=== PATIENT | male | born 1955 | race Caucasian/White ===

== ENCOUNTER → 2022-11-05 10:29 | Outpatient (BNVA) | payer MEDICARE, MEDICAID, SELFPAY | PROVIDERS: PCP Family Medicine; Referring Provider Nurse Practitioner Family; Visit Provider Anesthesiology Pain Medicine | DX: M54.12 Radiculopathy, cervical region (principal); M54.50 Low back pain, unspecified | CPT/HCPCS: 99204 ==

== ENCOUNTER 2022-12-05 12:46 | Outpatient (CLI) | payer MEDICARE, MEDICAID, SELFPAY ==
--- NOTE | 2022-12-05 12:58 | XR_ITS ---
WS: [id number] XR lumbar spine min 4V [id number] REASON FOR EXAM: M54.12 - Radiculopathy, cervical region FINDINGS: Relatively normal lumbar spine curvatures. Previous posterior decompression L3-L5. No significant vertebral body compression deformity or focal lesion. Intervertebral disc spaces are intact and relatively well-preserved with mild narrowing of the L5-S1 disc space. Moderate bridging anterior osteophytosis L2-L4. XR/XR lumbar spine min 4V [id number] IMPRESSION: Postoperative lumbar spine as above. Moderate degenerative spondylosis as above.
--- NOTE | 2022-12-05 13:00 | MR_ITS ---
WS: [id number] MRI LUMBAR SPINE NONCONTRAST HISTORY: M54.12 - Radiculopathy, cervical region COMPARISON: Lumbar spine radiographs 12/05/2022 TECHNIQUE: Sagittal and axial multisequence imaging is submitted. Anterior cervical fusion hardware extends from C3 through probably C5. Narrowing of the cervical cord volume loss in the cervical cord at the C4 level. May be from prior transection. No prior studies fo r comparison. Normal lumbar alignment with no compression fractures or marrow edema. Mild disc desiccation. No fractures. L4 hemangioma. Conus terminates normally at L1-2 disc level. L1-L2: Normal. L2-L3: Normal. L3-L4: LEFT hemilaminectomy defect. No central stenosis. Mild bilateral foraminal stenosis. L4-L5: LEFT hemilaminectomy defect. Patulous thecal sac. Diffuse disc bulging with a very small RIGHT paracentral disc protrusion.. Moderate facet and ligamentum flavum hypertrophy. Moderate bilateral f oraminal stenosis. Mild disc encroachment into the subarticular recesses contacting the traversing L5 nerve roots. L5-S1: LEFT hemilaminectomy defect. Mild osteophytic ridging. RIGHT paracentral osteophyte contacts t he RIGHT S1 nerve root. Mild clumping of the nerve roots in the thecal sac. There is mild deformity a nd stenosis of the central canal. Moderate bilateral foraminal stenosis. Mild edema involving the RIG HT facets with only a small amount of fluid. MR/MR lumbar spine wo con* [id number] IMPRESSION: 1. Prior LEFT hemilaminectomy defects at L3-4, L4-5 and L5-S1. 2. L3-4: Mild bilateral foraminal stenosis. 3. L4-5: Mild disc bulging with a small RIGHT paracentral disc protrusion. Mod erate bilateral foraminal stenosis with mild disc encroachment upon the subarti cular recesses contacting the traversing L5 nerve roots. 4. L5-S1: RIGHT paracentral osteophyte contacts the RIGHT S1 nerve root. Mild deformity and stenosis of the central canal. Moderate bilateral foraminal steno sis at L5-S1. 5. Mild RIGHT facet joint synovitis at L5-S1.
== END 2022-12-05 12:47 | disposition home or self-care (01) ==
PROVIDERS: PCP Family Medicine; Visit Provider Anesthesiology Pain Medicine
DX: M54.12 Radiculopathy, cervical region (principal); M48.061 Spinal stenosis, lumbar region without neurogenic claudication; Z98.890 Other specified postprocedural states; M51.36 Other intervertebral disc degeneration, lumbar region; M25.78 Osteophyte, vertebrae; M51.26 Other intervertebral disc displacement, lumbar region; M65.88 Other synovitis and tenosynovitis, other site
CPT/HCPCS: 72110; 72148; 99204

== ENCOUNTER → 2022-12-08 09:54 | Outpatient (BNVA) | payer MEDICARE, MEDICAID, SELFPAY | PROVIDERS: PCP Family Medicine; Visit Provider Anesthesiology Pain Medicine | DX: M54.50 Low back pain, unspecified (principal); M79.604 Pain in right leg; M79.605 Pain in left leg; M54.12 Radiculopathy, cervical region | CPT/HCPCS: 99214 ==

== ENCOUNTER → 2022-12-16 14:03 | Outpatient (BNVA) | payer MEDICARE, MEDICAID, SELFPAY | PROVIDERS: PCP Family Medicine; Visit Provider Anesthesiology Pain Medicine | DX: M54.16 Radiculopathy, lumbar region (principal); M54.12 Radiculopathy, cervical region | CPT/HCPCS: 64483; 64484; J1100; J3490 ==

== ENCOUNTER → 2023-01-26 13:51 | Outpatient (BNVA) | payer MEDICARE, MEDICAID, SELFPAY | PROVIDERS: PCP Family Medicine; Visit Provider Anesthesiology Pain Medicine | DX: M54.16 Radiculopathy, lumbar region (principal) | CPT/HCPCS: 64483; 64484; J1100; J3490 ==

== ENCOUNTER → 2023-03-03 08:58 | Outpatient (BNVA) | payer MEDICARE, MEDICAID, SELFPAY | PROVIDERS: PCP Family Medicine; Visit Provider Anesthesiology Pain Medicine | DX: M54.16 Radiculopathy, lumbar region (principal); M54.12 Radiculopathy, cervical region; M25.78 Osteophyte, vertebrae; M48.061 Spinal stenosis, lumbar region without neurogenic claudication | CPT/HCPCS: 99214 ==

== ENCOUNTER → 2023-05-20 09:44 | Outpatient (BNVA) | payer MEDICARE, MEDICAID, SELFPAY | PROVIDERS: PCP Family Medicine; Visit Provider Anesthesiology Pain Medicine | DX: M54.12 Radiculopathy, cervical region; M48.061 Spinal stenosis, lumbar region without neurogenic claudication | CPT/HCPCS: 99214 ==

== ENCOUNTER → 2023-06-10 09:57 | Outpatient (BNVA) | payer MEDICARE, MEDICAID, SELFPAY | PROVIDERS: PCP Family Medicine; Visit Provider Anesthesiology Pain Medicine | DX: M79.18 Myalgia, other site (principal); M54.12 Radiculopathy, cervical region; M48.07 Spinal stenosis, lumbosacral region; M48.061 Spinal stenosis, lumbar region without neurogenic claudication | CPT/HCPCS: 20553; 99214; J1030; J3490 ==

== ENCOUNTER → 2023-09-09 10:08 | Outpatient (BNVA) | payer MEDICARE, MEDICAID, SELFPAY | PROVIDERS: PCP Family Medicine; Visit Provider Anesthesiology Pain Medicine | DX: M54.12 Radiculopathy, cervical region (principal); M48.061 Spinal stenosis, lumbar region without neurogenic claudication; M51.26 Other intervertebral disc displacement, lumbar region | CPT/HCPCS: 99214 ==

== ENCOUNTER → 2023-09-28 14:43 | Outpatient (BNVA) | payer MEDICARE, MEDICAID, SELFPAY | PROVIDERS: PCP Family Medicine; Visit Provider Anesthesiology Pain Medicine | DX: M54.12 Radiculopathy, cervical region (principal); M48.061 Spinal stenosis, lumbar region without neurogenic claudication; M54.2 Cervicalgia; M54.50 Low back pain, unspecified | CPT/HCPCS: 20553; 99214; J1010; J3490 ==

== ENCOUNTER → 2023-11-16 10:24 | Outpatient (BNVA) | payer MEDICARE, MEDICAID, SELFPAY | PROVIDERS: PCP Family Medicine; Visit Provider Anesthesiology Pain Medicine | DX: M54.12 Radiculopathy, cervical region; M48.061 Spinal stenosis, lumbar region without neurogenic claudication | CPT/HCPCS: 99214 ==

== ENCOUNTER 2024-09-09 16:44 | Observation (INO) | payer MEDICARE, MEDICAID, SELFPAY ==
[2024-09-09 16:46] VITALS: BP 126/69; PULSE 69; RESP 16; TEMP 36.6; O2SAT 98; BMI 23.0
--- NOTE | 2024-09-09 17:05 | XRR_ITS ---
PROCEDURE INFORMATION: Exam: XR Abdomen Exam date and time: 09/09/2024 5:50 PM Age: 69 years old Clinical indication: Abdominal pain; Additional info: Lower abdominal and pelvis pain 3 wks TECHNIQUE: Imaging protocol: Radiologic exam of the abdomen. Views: Frontal supine view of the abdomen. 1 View. COMPARISON: MR lumbar spine wo con* [id number] 12/05/2022 1:25 PM FINDINGS: Gastrointestinal tract: Large amount of retained stool in the colon from constipation. There is a nonobstructive bowel gas pattern. The stomach appears to be distended with ingested material. Intraperitoneal space: Limited evaluation for free air given a supine examination. Bones/joints: The included osseous structures appear overall unremarkable. Other findings: Calcific density overlying the right hemiabdomen. XR/XR KUB portable [id number] IMPRESSION: As above.
--- NOTE | 2024-09-09 17:38 | W.ED.ABDPA2 ---
Documented by User: Adonay Figueroa MD 09/10/24 10:13 HPI - Abdominal Pain General: Chief Complaint: Abdominal Pain Stated Complaint: lower abd pain Time Seen by Provider: 09/09/24 17:04 Related Data Home Medications ?Medication ?Instructions ?Recorded ?Confirmed acetaminophen 500 mg tablet 1,000 mg PO Q8H PRN Pain 09/10/24 09/10/24 alprazolam 0.5 mg tablet 0.5 mg PO Q12H PRN Anxiety 09/10/24 09/10/24 alprazolam 1 mg tablet 1 mg PO BID 09/10/24 09/10/24 aripiprazole 5 mg tablet 5 mg PO DAILY 09/10/24 09/10/24 aspirin 81 mg tablet,delayed 81 mg PO DAILY 09/10/24 09/10/24 release bisacodyl 10 mg rectal suppository 10 mg [place] DAILY 09/10/24 09/10/24 finasteride 5 mg tablet 5 mg PO DAILY 09/10/24 09/10/24 ketoconazole 2 % shampoo 1 applic topical DAILY 09/10/24 09/10/24 magnesium hydroxide 400 mg/5 mL 30 ml PO DAILY PRN Constipation 09/10/24 09/10/24 oral suspension (Milk of Magnesia) melatonin 1 mg tablet 1 mg PO DAILY 09/10/24 09/10/24 ondansetron HCl 4 mg tablet 4 mg PO Q4H 09/10/24 09/10/24 oxycodone myristate 18 mg capsule 18 mg PO BID 09/10/24 09/10/24 sprinkle extended release 12hr(DON'T CRUSH) (Xtampza ER) pantoprazole 40 mg tablet,delayed 40 mg PO DAILY 09/10/24 09/10/24 release polyethylene glycol 3350 17 17 g PO BID 09/10/24 09/10/24 gram/dose oral powder (Miralax) polyvinyl alcohol-povidone 0.5 2 drp ophthalmic (eye) Q4H PRN 09/10/24 09/10/24 %-0.6 % eye drops (Artificial Itching Tears (polyvinyl alcohol/povidone)) sennosides 8.6 mg-docusate sodium 2 tab-cap PO BID 09/10/24 09/10/24 50 mg tablet simvastatin 20 mg tablet 20 mg PO DAILY 09/10/24 09/10/24 sodium phosphates 19 gram-7 118 ml [place] DAILY PRN Constipation 09/10/24 09/10/24 gram/118 mL enema (Enema) tramadol 50 mg tablet 50 mg PO TID 09/10/24 09/10/24 Allergies Allergy/AdvReac Type Severity Reaction Status Date / Time codeine Allergy Severe swelling Verified 11/16/23 10:45 lisinopril Allergy Unknown Unknown Verified 11/16/23 10:45 Review of Systems General: Reports: 10 or more systems reviewed and unremarkable except in HPI and below PFSH ED PFSH: Medical History (Updated 09/10/24 @ 00:07 by Clarence Manley MD) Constipation Cervical pain (neck) Family History (Updated 09/09/24 @ 23:56 by Clarence Manley MD) Brother CAD (coronary artery disease) Brother No problems noted. Social History (Updated 09/10/24 @ 00:14 by Clarence Manley MD) Smoking and tobacco/nicotine status: never used tobacco/nicotine Alcohol intake: former Year of sobriety/quit date alcohol: 5 Substance/Drug Use: never Additional social history: Wants full code has daughter who is his next of kin Ms. Tammy Otero. I called her and let her Alberto know pt is ok Current occupational status: disabled Physical Exam Narrative: EXAM NARRATIVE: Physical Exam Const COMMON NORMALS: Patient presents with physical limitations and baseline is in a wheelchair which is motorized with hand controls [facility] COMMON NORMALS: normocephalic, COMMON NORMALS: normal respiratory effort, No use of accessory muscles Back/Pelvis LUMBAR SPINE/LOWER BACK: Physical exam limited by overall physical condition Strength 4-5 upper extrem, can't really move legs. OTHER: Unable to determine axial loading Extremity GENERAL: Yes normal exam except as noted Neuro COMMON NORMALS: patient oriented x3 MOTOR EXAM: See above DEEP TENDON REFLEXES: Reflexes of the lower extremities decreased Psych COMMON NORMALS: mental status grossly normal, Normal thought process present and speech normal APPEARANCE: Yes grossly normal ATTITUDE: Yes calm ACTIVITY/MOTOR BEHAVIOR: Yes appropriate eye contact SPEECH: Yes normal speech MOOD & AFFECT: Yes euthymic mood THOUGHT PROCESS: Normal thought process present THOUGHT CONTENT: Yes Normal thought content present ATTENTION/CONCENTRATION: Yes attention grossly intact MEMORY/COGNITION: Yes memory grossly intact INSIGHT: Good insight present (Psych) JUDGEMENT: Good judgement present (Psych) Course Vital Signs: Vital signs: Vital Signs Temperature 97.6 F 09/10/24 07:46 Pulse Rate 78 09/10/24 07:46 Respiratory Rate 14 09/10/24 07:46 Blood Pressure 101/59 09/10/24 07:46 Pulse Oximetry 94 09/10/24 07:46 Oxygen Delivery Me thod Room Air 09/10/24 07:46 MDM - Abdominal Pain Medical Decision Making KUB personally reviewed and shows patient has significant rectal constipation/impaction. Will start enemas and see if this resolves patient's pain. No pain on palpation. Vitals are normal. Dr. Manley coming down to evaluate the pateint for admission Pt had proctitis on CT after enemas did not provide relief. started on doxy/flagyl. Called hospitalist for admission. Differential Diagnosis Likely abdominal pain, acute appendicitis, constipation and diverticulitis Medical Records I reviewed the patient's medical records. Lab Data I reviewed the patient's lab results. 09/10/24 03:11 09/10/24 03:11 Labs/Radiology: Radiology Impressions KUB X-Ray 09/09/24 17:05 IMPRESSION: As above. Abdomen/Pelvis CT 09/09/24 21:54 IMPRESSION: 1. Crescentic, asymmetrical wall thickening of the distal sigmoid colon and rectum. Findings could potentially represent proctocolitis, but an underlying mass is of concern. Recommend further evaluation by colonoscopy when possible. 2. Nonobstructing right renal calculus measuring 1.3 x 0.9 x 1.2 cm. Negative for hydronephrosis or obstructive urolithiasis. Laboratory Results WBC 12.61 10^3/uL (3.29-11.43) H 09/09/24 17:37 RBC 5.16 10^6/uL (3.85-5.65) 09/09/24 17:37 Hgb 14.20 g/dL (11.27-16.99) 09/09/24 17:37 Hct 45.6 % (37-53) 09/09/24 17:37 MCV 88.4 fl (82-101) 09/09/24 17:37 MCH 27.5 pg (27-33) 09/09/24 17:37 MCHC 31.1 g/dL (30-55) 09/09/24 17:37 RDW 13.9 % (12.1-15.1) 09/09/24 17:37 Plt Count 347 10^3/cmm (157-399) 09/09/24 17:37 MPV 10.7 fL (7.4-10.4) H 09/09/24 17:37 Neut % (Auto) 70.3 % 09/09/24 17:37 Lymph % (Auto) 20.4 % 09/09/24 17:37 [place] % (Auto) 6.6 % 09/09/24 17:37 Eos % (Auto) 1.6 % 09/09/24 17:37 Baso % (Auto) 0.7 % 09/09/24 17:37 Neut # (Auto) 8.87 10^3/uL (1.8-7.7) H 09/09/24 17:37 Lymph # (Auto) 2.6 10^3/uL (0.8-4.8) 09/09/24 17:37 [place] # (Auto) 0.8 10^3/uL (0.2-0.9) 09/09/24 17:37 Eos # (Auto) 0.2 10^3/uL (0.0-0.8) 09/09/24 17:37 Baso # (Auto) 0.1 10^3/uL (0.0-0.1) 09/09/24 17:37 Nucleated RBC % (auto) 0 % 09/09/24 17:37 Nucleated RBCs # 0.0 /100WBC 09/09/24 17:37 Sodium 138 mmol/L (136-145) 09/09/24 17:37 Potassium 4.5 mmol/L (3.5-5.1) 09/09/24 17:37 Chloride 100 mmol/L (98-107) 09/09/24 17:37 Carbon Dioxide 24 mmol/L (22-29) 09/09/24 17:37 Anion Gap 18.5 (5-19) 09/09/24 17:37 BUN 17 mg/dL (8-23) 09/09/24 17:37 Creatinine 0.8 mg/dL (0.7-1.2) 09/09/24 17:37 GFR Calculation 95.8 mL/min (90-130) 09/09/24 17:37 Glucose 75 mg/dL (65-115) 09/09/24 17:37 Calculated Osmolality 286 mOsm/kg (285-295) 09/09/24 17:37 Calcium 9.1 mg/dL (8.5-10.5) 09/09/24 17:37 Total Bilirubin 0.2 mg/dL (0.15-1.2) 09/09/24 17:37 AST 20 U/L (0-40) 09/09/24 17:37 ALT 13 U/L (0-41) 09/09/24 17:37 Alkaline Phosphatase 113 U/L (40-130) 09/09/24 17:37 Total Protein 7.4 g/dL (6.6-8.7) 09/09/24 17:37 Albumin 4.1 g/dL (3.5-5.2) 09/09/24 17:37 Globulin 3.3 g/dL (1.3-4.6) 09/09/24 17:37 Lipase 16 U/L (13-60) 09/09/24 17:37 Urine Color Yellow (Yellow) 09/09/24 22:56 Urine Appearance Slightly cloudy (CLEAR) 09/09/24 22:56 Urine pH 6.5 (5-7) 09/09/24 22:56 Ur Specific [place] 1.005 (1.005-1.030) 09/09/24 22:56 Urine Protein Neg (Negative) 09/09/24 22:56 Urine Glucose (UA) Norm (Normal) 09/09/24 22:56 Urine Ketones Negative (Negative) 09/09/24 22:56 Urine Blood Trace (Negative) A 09/09/24 22:56 Urine Nitrate Negative (Negative) 09/09/24 22:56 Urine Bilirubin Neg (Negative) 09/09/24 22:56 Urine Urobilinogen Norm mg/dL (Negative) 09/09/24 22:56 Ur Leukocyte Esterase 2+ (Negative) A 09/09/24 22:56 Urine RBC 0-2 /hpf (0-2) 09/09/24 22:56 Urine WBC >100 /hpf (0-5) H 09/09/24 22:56 Ur Squamous Epith Cells 0-5 /hpf (0-5) 09/09/24 22:56 Amorphous Sediment Not Reportable 09/09/24 22:56 Urine Bacteria None seen /hpf (NONE) 09/09/24 22:56 Hyaline Casts 2.46 /lpf 09/09/24 22:56 XR interpretation done by ED provider, pending radiology final review ED provider radiology interpretation(s): see hpi Discharge Plan Discharge Patient Disposition: Placed in Observation Admit Provider: Clarence Manley Clinical Impression: Acute proctitis, Abdominal pain Coding Level of Care Code ED [employer] Machine Feeder for Chg Fwd Documented by User: Lm Encarnacion DO 09/10/24 00:12 HPI - Abdominal Pain General: Chief Complaint: Abdominal Pain Stated Complaint: lower abd pain Time Seen by Provider: 09/09/24 17:04 History of Present Illness: Patient arrives via EMS from [place] with complaints of lower abdominal pain that goes across his lower abdomen to his hips. Patient denies any trauma. Been going on for about 3 weeks. Been gradually getting worse. Denies any nausea or vomiting. Related Data Home Medications ?Medication ?Instructions ?Recorded ?Confirmed acetaminophen 500 mg tablet 1,000 mg PO Q8H PRN Pain 09/10/24 09/10/24 alprazolam 0.5 mg tablet 0.5 mg PO Q12H PRN Anxiety 09/10/24 09/10/24 alprazolam 1 mg tablet 1 mg PO BID 09/10/24 09/10/24 aripiprazole 5 mg tablet 5 mg PO DAILY 09/10/24 09/10/24 aspirin 81 mg tablet,delayed 81 mg PO DAILY 09/10/24 09/10/24 release bisacodyl 10 mg rectal suppository 10 mg [place] DAILY 09/10/24 09/10/24 finasteride 5 mg tablet 5 mg PO DAILY 09/10/24 09/10/24 ketoconazole 2 % shampoo 1 applic topical DAILY 09/10/24 09/10/24 magnesium hydroxide 400 mg/5 mL 30 ml PO DAILY PRN Constipation 09/10/24 09/10/24 oral suspension (Milk of Magnesia) melatonin 1 mg tablet 1 mg PO DAILY 09/10/24 09/10/24 ondansetron HCl 4 mg tablet 4 mg PO Q4H 09/10/24 09/10/24 oxycodone myristate 18 mg capsule 18 mg PO BID 09/10/24 09/10/24 sprinkle extended release 12hr(DON'T CRUSH) (Xtampza ER) pantoprazole 40 mg tablet,delayed 40 mg PO DAILY 09/10/24 09/10/24 release polyethylene glycol 3350 17 17 g PO BID 09/10/24 09/10/24 gram/dose oral powder (Miralax) polyvinyl alcohol-povidone 0.5 2 drp ophthalmic (eye) Q4H PRN 09/10/24 09/10/24 %-0.6 % eye drops (Artificial Itching Tears (polyvinyl alcohol/povidone)) sennosides 8.6 mg-docusate sodium 2 tab-cap PO BID 09/10/24 09/10/24 50 mg tablet simvastatin 20 mg tablet 20 mg PO DAILY 09/10/24 09/10/24 sodium phosphates 19 gram-7 118 ml [place] DAILY PRN Constipation 09/10/24 09/10/24 gram/118 mL enema (Enema) tramadol 50 mg tablet 50 mg PO TID 09/10/24 09/10/24 Allergies Allergy/AdvReac Type Severity Reaction Status Date / Time codeine Allergy Severe swelling Verified 11/16/23 10:45 lisinopril Allergy Unknown Unknown Verified 11/16/23 10:45 [facility] ED PFSH: Medical History (Updated 09/10/24 @ 00:07 by Clarence Manley MD) Constipation Cervical pain (neck) Family History (Updated 09/09/24 @ 23:56 by Clarence Manley MD) Brother CAD (coronary artery disease) Brother No problems noted. Social History (Updated 09/10/24 @ 00:14 by Clarence Manley MD) Smoking and tobacco/nicotine status: never used tobacco/nicotine Alcohol intake: former Year of sobriety/quit date alcohol: 5 Substance/Drug Use: never Additional social history: Wants full code has daughter who is his next of kin Ms. Tammy Otero. I called her and let her Alberto know pt is ok Current occupational status: disabled Course Vital Signs: Vital signs: Vital Signs Temperature 97.6 F 09/10/24 07:46 Pulse Rate 78 09/10/24 07:46 Respiratory Rate 14 09/10/24 07:46 Blood Pressure 101/59 09/10/24 07:46 Pulse Oximetry 94 09/10/24 07:46 Oxygen Delivery Me thod Room Air 09/10/24 07:46 MDM - Abdominal Pain Lab Data 09/10/24 03:11 09/10/24 03:11 Labs/Radiology: Radiology Impressions KUB X-Ray 09/09/24 17:05 IMPRESSION: As above. Abdomen/Pelvis CT 09/09/24 21:54 IMPRESSION: 1. Crescentic, asymmetrical wall thickening of the distal sigmoid colon and rectum. Findings could potentially represent proctocolitis, but an underlying mass is of concern. Recommend further evaluation by colonoscopy when possible. 2. Nonobstructing right renal calculus measuring 1.3 x 0.9 x 1.2 cm. Negative for hydronephrosis or obstructive urolithiasis. Laboratory Results WBC 12.61 10^3/uL (3.29-11.43) H 09/09/24 17:37 RBC 5.16 10^6/uL (3.85-5.65) 09/09/24 17:37 Hgb 14.20 g/dL (11.27-16.99) 09/09/24 17:37 Hct 45.6 % (37-53) 09/09/24 17:37 MCV 88.4 fl (82-101) 09/09/24 17:37 MCH 27.5 pg (27-33) 09/09/24 17:37 MCHC 31.1 g/dL (30-55) 09/09/24 17:37 RDW 13.9 % (12.1-15.1) 09/09/24 17:37 Plt Count 347 10^3/cmm (157-399) 09/09/24 17:37 MPV 10.7 fL (7.4-10.4) H 09/09/24 17:37 Neut % (Auto) 70.3 % 09/09/24 17:37 Lymph % (Auto) 20.4 % 09/09/24 17:37 [place] % (Auto) 6.6 % 09/09/24 17:37 Eos % (Auto) 1.6 % 09/09/24 17:37 Baso % (Auto) 0.7 % 09/09/24 17:37 Neut # (Auto) 8.87 10^3/uL (1.8-7.7) H 09/09/24 17:37 Lymph # (Auto) 2.6 10^3/uL (0.8-4.8) 09/09/24 17:37 [place] # (Auto) 0.8 10^3/uL (0.2-0.9) 09/09/24 17:37 Eos # (Auto) 0.2 10^3/uL (0.0-0.8) 09/09/24 17:37 Baso # (Auto) 0.1 10^3/uL (0.0-0.1) 09/09/24 17:37 Nucleated RBC % (auto) 0 % 09/09/24 17:37 Nucleated RBCs # 0.0 /100WBC 09/09/24 17:37 Sodium 138 mmol/L (136-145) 09/09/24 17:37 Potassium 4.5 mmol/L (3.5-5.1) 09/09/24 17:37 Chloride 100 mmol/L (98-107) 09/09/24 17:37 Carbon Dioxide 24 mmol/L (22-29) 09/09/24 17:37 Anion Gap 18.5 (5-19) 09/09/24 17:37 BUN 17 mg/dL (8-23) 09/09/24 17:37 Creatinine 0.8 mg/dL (0.7-1.2) 09/09/24 17:37 GFR Calculation 95.8 mL/min (90-130) 09/09/24 17:37 Glucose 75 mg/dL (65-115) 09/09/24 17:37 Calculated Osmolality 286 mOsm/kg (285-295) 09/09/24 17:37 Calcium 9.1 mg/dL (8.5-10.5) 09/09/24 17:37 Total Bilirubin 0.2 mg/dL (0.15-1.2) 09/09/24 17:37 AST 20 U/L (0-40) 09/09/24 17:37 ALT 13 U/L (0-41) 09/09/24 17:37 Alkaline Phosphatase 113 U/L (40-130) 09/09/24 17:37 Total Protein 7.4 g/dL (6.6-8.7) 09/09/24 17:37 Albumin 4.1 g/dL (3.5-5.2) 09/09/24 17:37 Globulin 3.3 g/dL (1.3-4.6) 09/09/24 17:37 Lipase 16 U/L (13-60) 09/09/24 17:37 Urine Color Yellow (Yellow) 09/09/24 22:56 Urine Appearance Slightly cloudy (CLEAR) 09/09/24 22:56 Urine pH 6.5 (5-7) 09/09/24 22:56 Ur Specific [place] 1.005 (1.005-1.030) 09/09/24 22:56 Urine Protein Neg (Negative) 09/09/24 22:56 Urine Glucose (UA) Norm (Normal) 09/09/24 22:56 Urine Ketones Negative (Negative) 09/09/24 22:56 Urine Blood Trace (Negative) A 09/09/24 22:56 Urine Nitrate Negative (Negative) 09/09/24 22:56 Urine Bilirubin Neg (Negative) 09/09/24 22:56 Urine Urobilinogen Norm mg/dL (Negative) 09/09/24 22:56 Ur Leukocyte Esterase 2+ (Negative) A 09/09/24 22:56 Urine RBC 0-2 /hpf (0-2) 09/09/24 22:56 Urine WBC >100 /hpf (0-5) H 09/09/24 22:56 Ur Squamous Epith Cells 0-5 /hpf (0-5) 09/09/24 22:56 Amorphous Sediment Not Reportable 09/09/24 22:56 Urine Bacteria None seen /hpf (NONE) 09/09/24 22:56 Hyaline Casts 2.46 /lpf 09/09/24 22:56 Discharge Plan Discharge Patient Disposition: Placed in Observation Admit Provider: Clarence Manley Clinical Impression: Acute proctitis, Abdominal pain Coding Level of Care Code ED [employer] Machine Feeder for Lesvia Schafer
[2024-09-09 17:50] LABS: Basophils # 0.1 10^3/uL (0.0-0.1); Basophils % 0.7 %; Eosinophils # 0.2 10^3/uL (0.0-0.8); Eosinophils % 1.6 %; Hematocrit 45.6 % (37-53); Lymphocytes # 2.6 10^3/uL (0.8-4.8); Lymphocytes % 20.4 %; Mean Corpuscular HGB Conc 31.1 g/dL (30-55); Mean Corpuscular Hemoglobin 27.5 pg (27-33); Mean Corpuscular Volume 88.4 fl (82-101); Mean Platelet Volume 10.7 fL (7.4-10.4); Monocytes # 0.8 10^3/uL (0.2-0.9); Monocytes % 6.6 %; Neutrophils # 8.87 10^3/uL (1.8-7.7); Neutrophils % 70.3 %; Nucleated Red Blood Cells % 0 %; Platelet Count 347 10^3/cmm (157-399); Red Blood Count 5.16 10^6/uL (3.85-5.65); Red Cell Distribution Width 13.9 % (12.1-15.1); White Blood Count 12.61 10^3/uL (3.29-11.43)
[2024-09-09 18:05] LABS: Alanine Aminotransferase 13 U/L (0-41); Albumin Level 4.1 g/dL (3.5-5.2); Alkaline Phosphatase 113 U/L (40-130); Blood Urea Nitrogen 17 mg/dL (8-23); Calcium 9.1 mg/dL (8.5-10.5); Carbon Dioxide 24 mmol/L (22-29); Chloride 100 mmol/L (98-107); Creatinine Clr Calc Pharmacy 81.7624; Globulin 3.3 g/dL (1.3-4.6); Glomerular Filtration Rate 95.8 mL/min (90-130); Glucose 75 mg/dL (65-115); Lipase 16 U/L (13-60); Osmolality Calculated 286 mOsm/kg (285-295); Sodium 138 mmol/L (136-145); Total Bilirubin 0.2 mg/dL (0.15-1.2); Total Protein 7.4 g/dL (6.6-8.7)
[2024-09-09 18:27] VITALS: BP 125/64; PULSE 73; RESP 18; O2SAT 97
[2024-09-09 18:46] LABS: Anion Gap 18.5 (5-19); Aspartate Amino Transferase 20 U/L (0-40); Potassium 4.5 mmol/L (3.5-5.1)
[2024-09-09 20:00] VITALS: BP 114/59; PULSE 71; RESP 16; O2SAT 93
[2024-09-09] MEDS: Fleet Enema 133 mL Enema PR (21:05)
--- NOTE | 2024-09-09 21:54 | CTR_ITS ---
PROCEDURE INFORMATION: Exam: CT Abdomen And Pelvis Without Contrast Exam date and time: 09/09/2024 10:02 PM Age: 69 years old Clinical indication: Abdominal pain; Localized; C/O lower abd and pelvic pain; Additional info: Lower abdomen/pelvis pain TECHNIQUE: Imaging protocol: Computed tomography of the abdomen and pelvis without contrast. Radiation optimization: All CT scans at this facility use at least one of these dose optimization techniques: automated exposure control; mA and/or kV adjustment per patient size (includes targeted exams where dose is matched to clinical indication); or iterative reconstruction. COMPARISON: CR (ABDOMEN, ) 09/09/2024 5:50 PM RADIATION DOSE METRICS: Total DLP (mGy-cm): 508.26 FINDINGS: Heart: Heart normal in size. Severe calcified coronary artery atherosclerosis. Moderate to severe calcification of the aortic valve. No pericardial effusion. Liver: Normal. No mass. Gallbladder and biliary ducts: Normal. No calcified stones. No ductal dilation. Pancreas: Normal. No ductal dilation. Spleen: Normal. No splenomegaly. Adrenal glands: Normal. No mass. Kidneys and ureters: Nonobstructing right renal calculus measuring 1.3 x 0.9 x 1.2 cm. Negative for hydronephrosis or obstructive urolithiasis. Mild, nonspecific bilateral perinephric stranding. Stomach and bowel: Small bowel normal in caliber without focal wall thickening or dilation. Crescentic, asymmetrical wall thickening of the distal sigmoid colon and rectum. [id number] distal colonic diverticulosis. No overt findings of diverticulitis. Nonobstructive bowel gas pattern. Appendix: No evidence of appendicitis. Intraperitoneal space: Unremarkable. No free air. No significant fluid collection. Vasculature: Moderate atherosclerotic calcification of the aorta and major branch vessels without aneurysm. Lymph nodes: Unremarkable. No enlarged lymph nodes. Urinary bladder: Unremarkable as visualized. Reproductive: Unremarkable as visualized. Bones/joints: Moderate thoracolumbar spondylosis. No identified acute osseous abnormality. Soft tissues: Unremarkable. CT/CT abdomen pelvis wo con [id number] IMPRESSION: 1. Crescentic, asymmetrical wall thickening of the distal sigmoid colon and rectum. Findings could potentially represent proctocolitis, but an underlying mass is of concern. Recommend further evaluation by colonoscopy when possible. 2. Nonobstructing right renal calculus measuring 1.3 x 0.9 x 1.2 cm. Negative for hydronephrosis or obstructive urolithiasis.
[2024-09-09 22:00] VITALS: BP 117/54; PULSE 66; RESP 16; O2SAT 98
[2024-09-09] MEDS: doxycycline 100 MG in sodium chloride 0.9% (plus) 100 ML IV (22:58)
[2024-09-09] MEDS: metroNIDAZOLE IV 500 MG/100 ML PREMIX 100 MG IV (22:58)
[2024-09-09 23:20] VITALS: BP 115/64; PULSE 68; RESP 16; O2SAT 99
[2024-09-09 23:26] LABS: Bacteria Urine None Seen /hpf; Hyaline Casts Urine 2.46 /lpf; RBC Urine 0-2 /hpf (0-2); Squamous Epithelial Cell Urine 0-5 /hpf (0-5); WBC Urine >100 /hpf (0-5)
[2024-09-09 23:29] LABS: Urine Appearance Slightly Cloudy (CLEAR); Urine Color Yellow (Yellow)
[2024-09-09 23:30] LABS: Add Urine Culture? Yes; Add Urine Microscopic? YES; Bilirubin Urine Neg (Negative); Blood Urine Trace (Negative); Glucose Urine UA Norm (Normal); Ketones Urine Negative (Negative); Leukocyte Esterase Urine 2+ (Negative); Nitrate Urine Negative (Negative); Protein Urine Neg (Negative); Specific Gravity, Urine 1.005 (1.005-1.030); Urobilinogen Urine Norm (Negative); pH Urine 6.5 (5-7)
--- NOTE | 2024-09-09 23:47 | PM.HP ---
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 He states the weakness was gradual due to cervical nerve impingement and he ignored it and was too late to have it repaired completely. 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 Patient has been at the senior living facility and in recent months law prevented bed rails to be allowed on his bed and he has had trouble rolling to either side to pass stool. As a result he is obstipated and constipated. He wears a diaper due to loss of awareness and control of stool and bladder. He came in with pelvic pain and was found to have obstipation. He was treated with enemas but still had pain CT scan showed proctocolitis. Mass cannot be completely excluded but he has never had a colonoscopy. Radiologist recommends a colonoscopy be performed the rectal thickening is asymmetric. Patient denies blood from the rectum. Dr. Figueroa treated the patient with doxycycline and metronidazole and recommended observation in the hospital. Patient states he wants full code Review of Systems Narrative: General no fevers chills has had weight loss unintentional and he reports this is due to poor quality and taste of food at the facility. He lost weight from 255 pounds down to 147 pounds in a period of years. He states he was not purposely trying to lose weight did not care what his weight was Cardiovascular no chest pain or palpitations Respiratory no shortness of breath cough wheezing GI no nausea vomiting diarrhea he does have constipation no dysuria hematuria he is incontinent of urine. He can tell when he is passing urine but not with enough awareness to control it Neuro no seizures strokes patient reports weakness in his legs he is unable to walk he is up and motorized wheelchair 2-3 times a week. His hands are weak and whole body is weak. He cannot roll himself without bed rails Psych he does have depression he is not suicidal Heme no cancer Patient states he had enema was not comfortable but was not particularly painful Medications/Allergies Home Medications ?Medication ?Instructions ?Recorded ?Confirmed ?Last Taken ?Type ONDANSTERON HCI 4 mg PO 11/05/22 11/16/23 Unknown History acetamin 500 mg PO 3XD 11/05/22 11/16/23 Unknown History alprazolam 1 mg PO 11/05/22 11/16/23 Unknown History aspirin 81 mg PO 1XD 11/05/22 11/16/23 Unknown History bisacodyl 10 mg as directed 11/05/22 11/16/23 Unknown History celexa 10 mg PO 11/05/22 11/16/23 Unknown History docusate PO 11/05/22 11/16/23 Unknown History enema as directed 11/05/22 11/16/23 Unknown History glycolax powder 17 g PO 11/05/22 11/16/23 Unknown History ketoconazole topical 11/05/22 11/16/23 Unknown History melatonin 1 mg PO 11/05/22 11/16/23 Unknown History milk of mag 30 ml PO 11/05/22 11/16/23 Unknown History oxycodone 5 mg PO 11/05/22 11/16/23 Unknown History protonix PO 11/05/22 11/16/23 Unknown History simvastatin 20 mg PO 11/05/22 11/16/23 Unknown History xanax PO 1XD 11/05/22 11/16/23 Unknown History xtampza ER PO 11/05/22 11/16/23 Unknown History baclofen 10 mg tablet 10 mg PO BID 03/03/23 11/16/23 Unknown History duloxetine 30 mg capsule,delayed 30 mg PO DAILY 03/03/23 11/16/23 Unknown History release (Cymbalta) Allergies Allergy/AdvReac Type Severity Reaction Status Date / Time codeine Allergy Severe swelling Verified 11/16/23 10:45 lisinopril Allergy Unknown Unknown Verified 11/16/23 10:45 PFSH Acute PFSH: Medical History (Updated 09/10/24 @ 00:07 by Clarence Manley MD) Constipation Cervical pain (neck) Family History (Updated 09/09/24 @ 23:56 by Clarence Manley MD) Brother CAD (coronary artery disease) Brother No problems noted. Social History (Updated 09/10/24 @ 00:14 by Clarence Manley MD) Smoking and tobacco/nicotine status: never used tobacco/nicotine Alcohol intake: former Year of sobriety/quit date alcohol: 5 Substance/Drug Use: never Additional social history: Wants full code has daughter who is his next of kin Ms. Tammy Otero. I called her and let her Alberto know pt is ok Current occupational status: disabled Vitals/I&O/Wt Last Vital Signs Temp 97.9 F 09/09/24 16:46 Pulse 68 09/09/24 23:20 Resp 16 09/09/24 23:20 BP 115/64 09/09/24 23:20 Pulse Ox 99 09/09/24 23:20 O2 Del Method Room Air 09/09/24 23:20 Weight last 48 hrs Weight 66.678 kg Physical Exam Narrative: General well-developed well-nourished male in bed comfortable CV regular distant heart sounds Lungs clear to auscultation bilaterally Abdomen positive bowel sounds soft minimal nonspecific tenderness Calves trace to 1+ edema left trace right Neck no masses Oropharynx clear Mentation alert oriented pleasant poor historian Psych mood and affect normal Neuro patient has 5/5 flexion and extension of the ankle. Quadricep function to bring up the knees is weak bilaterally 3+ right 3 - left Right hand regional account executive 5-/5 but it has contracted left hand regional account executive 4-/5 Data 09/09/24 17:37 09/09/24 17:37 A&P Assessment and plan (1) Acute proctitis: Agree with observation on doxycycline and metronidazole will obtain CBC in the morning. If no bleeding and pain is improved white count normal he can be discharged home to follow-up for outpatient colonoscopy (2) Constipation: Start docusate and MiraLAX daily. Due to patient's immobility he would not be trapped in the bed due to bed rails but due to his immobility. The rails would help him to mobilize in the bed increasing his safety from bedsores and obstipation. It is my medical opinion that he should have bedrails allowed for his bed (3) Abdominal pain: Mild improved likely due to obstipation and proctocolitis (4) Cervical radiculopathy: Chronic and completely resolved with surgery PDMP PDMP Reviewed: Not Reviewed Attestations Medical Necessity Statement*: Anticipate the patient will need 1-2 midnights in hospital for observation from his proctocolitis and abdominal pain Time Spent in Patient Care: 75 minutes Coding Level of Care Code 48351 Diagnoses Acute proctitis K62.89 Constipation K59.00 Abdominal pain R10.9 Cervical radiculopathy M54.12 Time Spent (min) 75
[2024-09-10] VITALS (7 sets, daily range): BP systolic 101–130; BP diastolic 55–70; PULSE 65–78; RESP 14–18; TEMP 36.4–36.8; O2SAT 92–96; BMI 24.7
[2024-09-10] MEDS: polyethylene glycol 3350 Pkt 17 gm PO (01:22)
[2024-09-10 03:57] LABS: Basophils # 0.1 10^3/uL (0.0-0.1); Basophils % 0.8 %; Eosinophils # 0.3 10^3/uL (0.0-0.8); Eosinophils % 2.7 %; Hematocrit 39.6 % (37-53); Lymphocytes % 25.1 %; Mean Corpuscular HGB Conc 31.6 g/dL (30-55); Mean Corpuscular Hemoglobin 27.3 pg (27-33); Mean Corpuscular Volume 86.5 fl (82-101); Mean Platelet Volume 10.9 fL (7.4-10.4); Monocytes % 8.3 %; Neutrophils # 7.52 10^3/uL (1.8-7.7); Neutrophils % 62.8 %; Nucleated Red Blood Cells % 0 %; Platelet Count 390 10^3/cmm (157-399); Red Blood Count 4.58 10^6/uL (3.85-5.65); White Blood Count 11.95 10^3/uL (3.29-11.43)
[2024-09-10 04:13] LABS: Anion Gap 13.9 (5-19); Blood Urea Nitrogen 17 mg/dL (8-23); Calcium 8.6 mg/dL (8.5-10.5); Carbon Dioxide 26 mmol/L (22-29); Chloride 102 mmol/L (98-107); Creatinine Clr Calc Pharmacy 84.2878; Glomerular Filtration Rate 95.8 mL/min (90-130); Glucose 85 mg/dL (65-115); Osmolality Calculated 287 mOsm/kg (285-295); Potassium 3.9 mmol/L (3.5-5.1); Sodium 138 mmol/L (136-145)
[2024-09-10] MEDS: metroNIDAZOLE 500 MG Tablet PO ×3 (05:59→21:13)
--- NOTE | 2024-09-10 07:34 | PC.PHAR ---
patient from [facility]
[2024-09-10] MEDS: duloxetine 30 mg Capsule PO (08:13)
[2024-09-10] MEDS: baclofen 10 mg Tablet PO ×2 (08:14→17:02)
[2024-09-10] MEDS: doxycycline 100 mg Tablet PO ×2 (08:14→17:02)
[2024-09-10] MEDS: DOCUSATE SODIUM 100 MG/10 ML UDC 250 MG PO ×2 (08:14→17:02)
[2024-09-10] MEDS: citalopram 20 mg Tablet 10 MG PO (08:14)
[2024-09-10] MEDS: enoxaparin 40 mg/0.4 mL Syringe SUBCUT (08:17)
--- NOTE | 2024-09-10 10:30 | P.DS_ITS ---
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 He was treated with enemas with improvement in constipation. His bowel regimen has been adjusted. His proctocolitis is being treated with cefdinir/Flagyl. Recommend bedrails be available due to his history of spinal injury to help facilitate his bowel movements. There was concern for possible underlying mass on CT imaging in the setting of constipation and proctitis. Patient will be referred to general surgery clinic for consideration of colonoscopy. Patient also found to have acute complicated urinary tract infection for which cefdinir will cover. Physical Exam Narrative: General: Patient is awake. No acute distress. Pleasant. Head: Normocephalic. Atraumatic. EOM intact. Neck: No JVD. Cardiovascular: RRR. No gallops. No murmurs. Lungs: Clear to auscultation, no use of accessory muscles, no crackles or wheezes. Skin: No jaundice. No rashes. Abdomen: Mild tenderness to deep palpation. Bowel sounds present. Soft. Genito Urinary: Genital exam not performed since complaints not related. Rectal: Rectal exam not performed since no symptoms indicated blood loss. Extremities: No cyanosis or clubbing. Musculoskeletal: No swollen or erythematous joints. Neurological: No myoclonus. Discharge Data Studies Completed and Pending Completed Studies During Hospitalization Category Date Time Status CT abdomen pelvis wo con [id number] Stat Cat Scan 09/09/24 21:54 Completed XR KUB portable [id number] Stat Exams 09/09/24 17:05 Completed Pending at discharge Category Date Time Status Urine Culture Stat Lab 09/09/24 22:56 Received Radiology Impressions KUB X-Ray 09/09/24 17:05 IMPRESSION: As above. Abdomen/Pelvis CT 09/09/24 21:54 IMPRESSION: 1. Crescentic, asymmetrical wall thickening of the distal sigmoid colon and rectum. Findings could potentially represent proctocolitis, but an underlying mass is of concern. Recommend further evaluation by colonoscopy when possible. 2. Nonobstructing right renal calculus measuring 1.3 x 0.9 x 1.2 cm. Negative for hydronephrosis or obstructive urolithiasis. Laboratory Results WBC 11.95 10^3/uL (3.29-11.43) H 09/10/24 03:11 RBC 4.58 10^6/uL (3.85-5.65) 09/10/24 03:11 Hgb 12.50 g/dL (11.27-16.99) 09/10/24 03:11 Hct 39.6 % (37-53) 09/10/24 03:11 MCV 86.5 fl (82-101) 09/10/24 03:11 MCH 27.3 pg (27-33) 09/10/24 03:11 MCHC 31.6 g/dL (30-55) 09/10/24 03:11 RDW 14.0 % (12.1-15.1) 09/10/24 03:11 Plt Count 390 10^3/cmm (157-399) 09/10/24 03:11 MPV 10.9 fL (7.4-10.4) H 09/10/24 03:11 Neut % (Auto) 62.8 % 09/10/24 03:11 Lymph % (Auto) 25.1 % 09/10/24 03:11 [place] % (Auto) 8.3 % 09/10/24 03:11 Eos % (Auto) 2.7 % 09/10/24 03:11 Baso % (Auto) 0.8 % 09/10/24 03:11 Neut # (Auto) 7.52 10^3/uL (1.8-7.7) 09/10/24 03:11 Lymph # (Auto) 3.0 10^3/uL (0.8-4.8) 09/10/24 03:11 [place] # (Auto) 1.0 10^3/uL (0.2-0.9) H 09/10/24 03:11 Eos # (Auto) 0.3 10^3/uL (0.0-0.8) 09/10/24 03:11 Baso # (Auto) 0.1 10^3/uL (0.0-0.1) 09/10/24 03:11 Nucleated RBC % (auto) 0 % 09/10/24 03:11 Nucleated RBCs # 0.0 /100WBC 09/10/24 03:11 Sodium 138 mmol/L (136-145) 09/10/24 03:11 Potassium 3.9 mmol/L (3.5-5.1) 09/10/24 03:11 Chloride 102 mmol/L (98-107) 09/10/24 03:11 Carbon Dioxide 26 mmol/L (22-29) 09/10/24 03:11 Anion Gap 13.9 (5-19) 09/10/24 03:11 BUN 17 mg/dL (8-23) 09/10/24 03:11 Creatinine 0.8 mg/dL (0.7-1.2) 09/10/24 03:11 GFR Calculation 95.8 mL/min (90-130) 09/10/24 03:11 Glucose 85 mg/dL (65-115) 09/10/24 03:11 Calculated Osmolality 287 mOsm/kg (285-295) 09/10/24 03:11 Calcium 8.6 mg/dL (8.5-10.5) 09/10/24 03:11 Total Bilirubin 0.2 mg/dL (0.15-1.2) 09/09/24 17:37 AST 20 U/L (0-40) 09/09/24 17:37 ALT 13 U/L (0-41) 09/09/24 17:37 Alkaline Phosphatase 113 U/L (40-130) 09/09/24 17:37 Total Protein 7.4 g/dL (6.6-8.7) 09/09/24 17:37 Albumin 4.1 g/dL (3.5-5.2) 09/09/24 17:37 Globulin 3.3 g/dL (1.3-4.6) 09/09/24 17:37 Lipase 16 U/L (13-60) 09/09/24 17:37 Urine Color Yellow (Yellow) 09/09/24 22:56 Urine Appearance Slightly cloudy (CLEAR) 09/09/24 22:56 Urine pH 6.5 (5-7) 09/09/24 22:56 Ur Specific [place] 1.005 (1.005-1.030) 09/09/24 22:56 Urine Protein Neg (Negative) 09/09/24 22:56 Urine Glucose (UA) Norm (Normal) 09/09/24 22:56 Urine Ketones Negative (Negative) 09/09/24 22:56 Urine Blood Trace (Negative) A 09/09/24 22:56 Urine Nitrate Negative (Negative) 09/09/24 22:56 Urine Bilirubin Neg (Negative) 09/09/24 22:56 Urine Urobilinogen Norm mg/dL (Negative) 09/09/24 22:56 Ur Leukocyte Esterase 2+ (Negative) A 09/09/24 22:56 Urine RBC 0-2 /hpf (0-2) 09/09/24 22:56 Urine WBC >100 /hpf (0-5) H 09/09/24 22:56 Ur Squamous Epith Cells 0-5 /hpf (0-5) 09/09/24 22:56 Amorphous Sediment Not Reportable 09/09/24 22:56 Urine Bacteria None seen /hpf (NONE) 09/09/24 22:56 Hyaline Casts 2.46 /lpf 09/09/24 22:56 Vitals Last Vital Signs Temp 97.6 F 09/10/24 07:46 Pulse 78 09/10/24 07:46 Resp 14 09/10/24 07:46 BP 101/59 09/10/24 07:46 Pulse Ox 94 09/10/24 07:46 O2 Del Method Room Air 09/10/24 07:46 Discharge Plan Discharge Patient Disposition: Xfer LTC Condition: Stable Prescriptions: New metronidazole 500 mg Tablet 500 mg PO Q8H 7 Days Qty: 21 0RF lactulose 10 gram packet 10 g PO DAILY Qty: 15 0RF Rx Instructions: Hold for loose stool cefdinir 300 mg capsule 300 mg PO BID 7 Days Qty: 14 0RF Continued ketoconazole 2 % shampoo 1 applic TOPICAL DAILY alprazolam 1 mg tablet 1 mg PO BID ondansetron HCl 4 mg Tablet 4 mg PO Q4H sennosides-docusate sodium 8.6-50 mg Tablet 2 tab-cap PO BID aspirin 81 mg Tablet,Delayed Release (Dr/Ec) 81 mg PO DAILY tramadol 50 mg tablet 50 mg PO TID acetaminophen 500 mg Tablet 1,000 mg PO Q8H PRN (Reason: Pain) alprazolam 0.5 mg tablet 0.5 mg PO Q12H PRN (Reason: Anxiety) magnesium hydroxide [Milk of Magnesia] 400 mg/5 mL Suspension 30 ml PO DAILY PRN (Reason: Constipation) bisacodyl 10 mg Suppository 10 mg [place] DAILY pantoprazole 40 mg tablet,delayed release (DR/EC) 40 mg PO DAILY simvastatin 20 mg tablet 20 mg PO DAILY Enema 19-7 gram/118 mL Enema 118 ml [place] DAILY PRN (Reason: Constipation) finasteride 5 mg Tablet 5 mg PO DAILY aripiprazole 5 mg tablet 5 mg PO DAILY melatonin 1 mg Tablet 1 mg PO DAILY Artificial Tears(pvalch-povid) 0.5-0.6 % Drops 2 drp OPHTHALMIC (EYE) Q4H PRN (Reason: Itching) Xtampza ER 18 mg cap,sprinkl,ER12hr(DONT CRUSH) 18 mg PO BID Changed polyethylene glycol 3350 [Miralax] 17 gram/dose Powder 34 g PO BID Qty: 850 0RF Discharge Orders: Discharge Order (Routine); Ordered 09/10/24 Ordered By: Errol Skinner Referrals: August Ca MD [Physician] - 2 weeks (Consideration of colonoscopy in the setting of abnormal CT imaging. We have notified your physician's clinic of the need for a follow-up appointment to be scheduled. If you have not heard from them within the next 2 business days, please call them directly. ) Mac Salcido Jr, MD [Primary Care Provider] - Discharge Diet: Advance as tolerated Discharge Activity: Resume usual activity and Increase activity as tolerated Patient Instructions: Metronidazole (By mouth), Lactulose (By mouth), Cefdinir (By mouth), Constipation (GEN), Proctitis (GEN) Activity Restrictions/Additional Instructions: 1. Take medications as prescribed. 2. Follow through with referral to general surgery clinic to discuss need for colonoscopy. 3. Monitor bowel movements. Your bowel regiment may need ongoing adjustments with time. Discharge Attestations Time Spent in Discharge Care*: greater than 30 min Quality Metrics Clinical Quality Measures [ No reported AMI, CVA or VTE this stay] Coding Level of Care Code Acute Code for Chg Fwd Diagnoses Acute proctitis K62.89 Constipation K59.00 Abdominal pain R10.9 Cervical radiculopathy M54.12
[2024-09-10] MEDS: oxyCODONE 5 mg IR Tab/Cap PO (13:45)
--- NOTE | 2024-09-10 13:47 | PC.NURSE ---
Report called to LESLI Perez at [facility]. All questions were answered. IV was removed. LESLI Osei attempted to contact [facility].
--- NOTE | 2024-09-10 23:42 | PC.NURSE ---
Chencho Olivo here to transport patient back to [facility]. This nurse called [facility] at [phone] to notify them of patient being on his way, all questions/concerns addressed at this time
[2024-09-11 00:03] VITALS: BP 118/70; PULSE 67; RESP 18; TEMP 37.4; O2SAT 93
== END 2024-09-10 23:42 ==
LOC: ER 22:42 → MEDSURG 09-10 00:21
PROVIDERS: Admitting Provider Internal Medicine; Emergency Provider Emergency Medicine; PCP Family Medicine; Visit Provider Internal Medicine
DX: K62.89 Other specified diseases of anus and rectum (principal); K59.00 Constipation, unspecified; R10.9 Unspecified abdominal pain; M54.12 Radiculopathy, cervical region; Z79.82 Long term (current) use of aspirin; K21.9 Gastro-esophageal reflux disease without esophagitis; G82.50 Quadriplegia, unspecified
CPT/HCPCS: 36415; 51701; 74018; 74176; 80048; 80053; 81001; 83690; 85025; 87077; 87086; 87186; 96365; 96367; 96372; 99285; G0378; J1650; J3490; J9999

== ENCOUNTER → 2024-09-29 09:36 | Outpatient (BNVA) | payer MEDICARE, MEDICAID, SELFPAY | PROVIDERS: PCP Family Medicine; Visit Provider Student in an Organized Health Care Education/Training Program | DX: R19.4 Change in bowel habit (principal) | CPT/HCPCS: 99204 ==